=== PATIENT | female | born 1980 ===

== ENCOUNTER 2022-08-15 12:41 | Inpatient (IN) | payer OTHER ==
[~2022-08-15] VITALS: Ht 157.5 cm; Wt 70.8 kg
[2022-08-22] MEDS ORDERED: GABAPENTIN300 MG PO (07:00)
[2022-08-22] MEDS ORDERED: LEVSIN/SL0.125 MG SL (07:03)
== END 2022-08-22 10:02 | disposition home or self-care (01) | DRG 743 ==
LOC: O/R 08-20 05:40 → SURH 08-20 08:30 → OB/GYN 08-20 10:56 → SURH 08-20 11:45 → OB/GYN 08-22 10:02
PROVIDERS: ADMIT Obstetrics & Gynecology Gynecology; ATTEND Obstetrics & Gynecology Gynecology
PROC: 0UT70ZZ Resection of Bilateral Fallopian Tubes, Open Approach (ICD-10-PCS; 2022-08-20)
PROC: 0UT00ZZ Resection of Right Ovary, Open Approach (ICD-10-PCS; 2022-08-20)
PROC: 0UT90ZZ Resection of Uterus, Open Approach (ICD-10-PCS; principal; 2022-08-20 08:30)
DX: N72 Inflammatory disease of cervix uteri (principal); N80.03 Adenomyosis of the uterus; N83.11 Corpus luteum cyst of right ovary; Z20.822 Contact with and (suspected) exposure to COVID-19; N73.6 Female pelvic peritoneal adhesions (postinfective); N80.101 Endometriosis of right ovary, unspecified depth